=== PATIENT | male | born 1965 | race Caucasian/White ===

== ENCOUNTER 2021-11-15 08:02 | Emergency (ER) | payer OTHER ==
[~2021-11-15 08:02] MED LIST: CIPRO500 MG PO; METRONIDAZOLE500 MG PO
[2021-11-15 09:22] LABS: BASOPHIL 0.6 % (0-2); EOSINOPHIL 2.8 % (0-5); HGB 13.9 g/dl (13.2-18.0); LYMPHOCYTE 18.4 % (15-48); MCH 35.4 pg (25.0-31.0); MCHC 34.8 g/dL (32.0-36.0); MCV 101.8 fL (78.0-100.0); MONOCYTE 10.8 % (0-12); MPV 9.5 fL (6.0-9.5); NEUTROPHIL 66.6 % (41-80); NRBC 0; PLT 104 K/uL (150-400); RBC 3.93 M/uL (4.70-6.00); RDW 13.4 % (11.5-14.0)
[2021-11-15 09:35] LABS: ALBUMIN 3.3 g/dL (3.4-5.0); BILIRUBIN - TOTAL 0.5 mg/dL (0.2-1.0); BUN/CREAT RATIO (CALC) 18.3 RATIO; CREATININE 0.93 mg/dL (0.67-1.17); GLOBULIN (CALCULATION) 3.8 g/dL; POTASSIUM 4.3 mmol/L (3.5-5.1); TOTAL PROTEIN 7.1 g/dL (6.4-8.2)
[2021-11-15 09:54] LABS: BILIRUBIN NEGATIVE (NEGATIVE); BLOOD NEGATIVE Ery/uL (NEGATIVE); CLARITY CLEAR (CLEAR); COLOR YELLOW (YELLOW); GLUCOSE (U) NORMAL (NORMAL); LEUKOCYTES NEGATIVE Leu/uL (NEGATIVE); NITRITE NEGATIVE (NEGATIVE); PROTEIN NEGATIVE (NEGATIVE); UROBILINOGEN 0.2 mg/dL (0.2-1.0); pH 5.5 (5.0-9.0)
[2021-11-15] MEDS ORDERED: PREDNISONE 20MG20 MG PO (12:42)
[2021-11-15] MEDS ORDERED: NORCO 5-325 TA1 EACH PO (12:42)
== END 2021-11-15 13:19 | disposition home or self-care (01) ==
LOC: FER 08:02
PROVIDERS: Emergency Medicine
DX: M51.36 Other intervertebral disc degeneration, lumbar region (principal); R16.2 Hepatomegaly with splenomegaly, not elsewhere classified; I10 Essential (primary) hypertension
CPT/HCPCS: 36415; 80053; 81003; 85025; J1170; J1885; J2405; J2930; Q9967

== ENCOUNTER 2022-03-28 06:47 | Inpatient (IN) | payer OTHER ==
[~2022-03-28] VITALS: Ht 175.3 cm; Wt 155.0 kg
[~2022-03-28 06:47] MED LIST changes: +NORCO 5-325 TA1 EACH PO; +PREDNISONE 20MG20 MG PO
[2022-03-28 07:38] LABS: BASOPHIL 0.8 % (0-2); EOSINOPHIL 2.7 % (0-5); HCT 43.6 % (42.0-52.0); MCHC 34.4 g/dL (32.0-36.0); MCV 101.9 fL (78.0-100.0); MONOCYTE 14.1 % (0-12); MPV 9.4 fL (6.0-9.5); NEUTROPHIL 61.6 % (41-80); NRBC 0; PLT 101 K/uL (150-400); RBC 4.28 M/uL (4.70-6.00); WBC 5.2 K/uL (4.0-10.5)
[2022-03-28 07:45] LABS: INR 1.02 (0.9-1.2); PROTHROMBIN TIME 13.1 SECONDS (11.9-13.9)
[2022-03-28 07:47] LABS: D-DIMER 0.8 ug/mLFEU (0.00-0.41)
[2022-03-28 07:54] LABS: ALBUMIN 3.3 g/dL (3.4-5.0); BILIRUBIN - TOTAL 0.4 mg/dL (0.2-1.0); CREATININE 1.05 mg/dL (0.67-1.17); GLOBULIN (CALCULATION) 3.5 g/dL; MAGNESIUM 1.3 mg/dL (1.8-2.4); POTASSIUM 3.8 mmol/L (3.5-5.1); TOTAL PROTEIN 6.8 g/dL (6.4-8.2)
[2022-03-28 08:01] LABS: LACTIC ACID 2.6 mmol/L (0.4-1.9)
[2022-03-28 08:43] LABS: BILIRUBIN NEGATIVE (NEGATIVE); BLOOD NEGATIVE Ery/uL (NEGATIVE); COLOR YELLOW (YELLOW); GLUCOSE (U) NORMAL (NORMAL); LEUKOCYTES NEGATIVE Leu/uL (NEGATIVE); NITRITE NEGATIVE (NEGATIVE); PROTEIN TRACE (LOW) mg/dL (NEGATIVE); SPECIFIC GRAVITY >=1.030 (1.001-1.030); UROBILINOGEN 0.2 mg/dL (0.2-1.0)
[2022-03-28 08:45] LABS: CLARITY HAZY (CLEAR)
[2022-03-28 08:52] LABS: BACTERIA 1+
[2022-03-28] MEDS ORDERED: PRINIVIL10 MG PO (11:18)
[2022-03-28] MEDS ORDERED: TENORMIN50 MG PO (11:18)
[2022-03-28] MEDS ORDERED: NEURONTIN300 MG PO (11:19)
[2022-03-28] MEDS ORDERED: AMBIEN10 MG PO (11:19)
[2022-03-28] MEDS ORDERED: PERCOCET 10-321 EACH PO (11:20)
[2022-03-28] MEDS ORDERED: SYNTHROID100 MCG PO (11:21)
[2022-03-28] MEDS ORDERED: PROTONIX 40MG T40 MG PO (11:21)
[2022-03-28] MEDS ORDERED: FLONASE ALLER15.8 ML (11:22)
[2022-03-28] MEDS ORDERED: ALLOPURINOL 30300 MG PO (21:06)
[2022-03-29 06:11] LABS: BASOPHIL 0.2 % (0-2); EOSINOPHIL 0 % (0-5); HCT 44.7 % (42.0-52.0); HGB 15.5 g/dl (13.2-18.0); LYMPHOCYTE 8.4 % (15-48); MCH 35.5 pg (25.0-31.0); MCHC 34.7 g/dL (32.0-36.0); MCV 102.3 fL (78.0-100.0); MONOCYTE 2.8 % (0-12); MPV 9.8 fL (6.0-9.5); NEUTROPHIL 87.6 % (41-80); NRBC 0; RBC 4.37 M/uL (4.70-6.00); RDW 13.8 % (11.5-14.0)
[2022-03-29 06:14] LABS: PLT 98 K/uL (150-400)
[2022-03-29 06:49] LABS: BUN/CREAT RATIO (CALC) 27.7 RATIO; CREATININE 0.83 mg/dL (0.67-1.17); MAGNESIUM 2.1 mg/dL (1.8-2.4); POTASSIUM 4.7 mmol/L (3.5-5.1)
--- NOTE | 2022-03-29 14:40 | NUR ---
03/29 Mr. Maynard lives alone. He is independent and employed. Will monitor for 02 needs. Patient chose [facility] as the provider if 02 is needed.
[2022-03-30 06:41] LABS: BASOPHIL 0.1 % (0-2); EOSINOPHIL 0 % (0-5); HCT 44.6 % (42.0-52.0); HGB 14.8 g/dl (13.2-18.0); LYMPHOCYTE 5.4 % (15-48); MCH 34.6 pg (25.0-31.0); MCHC 33.2 g/dL (32.0-36.0); MCV 104.2 fL (78.0-100.0); MONOCYTE 5.3 % (0-12); MPV 9.7 fL (6.0-9.5); NEUTROPHIL 88.7 % (41-80); NRBC 0; PLT 113 K/uL (150-400); RBC 4.28 M/uL (4.70-6.00)
[2022-03-30 06:47] LABS: WBC 11.5 K/uL (4.0-10.5)
[2022-03-30 07:57] LABS: BUN/CREAT RATIO (CALC) 31.8 RATIO; C-REACTIVE PROTEIN 0.5 mg/dL (<=0.90); CREATININE 0.88 mg/dL (0.67-1.17); MAGNESIUM 1.8 mg/dL (1.8-2.4); POTASSIUM 4.6 mmol/L (3.5-5.1)
--- NOTE | 2022-03-30 23:03 | NUR ---
PT REQUEST TO TAKE HS MEDS AT LATER TIME
--- NOTE | 2022-03-31 12:58 | NUR ---
03/31/22 [facility] provided 02 at 2 L. A referral was made to the Resource Trap Setter to schedule a Pulmonology appointment.
[2022-03-31] MEDS ORDERED: SINGULAIR10 MG PO (15:24)
[2022-03-31] MEDS ORDERED: AMOX TR-K CLV1 EAC4 PO (15:24)
--- NOTE | 2022-03-31 16:20 | NUR ---
WENT OVER DISCHARGE INSTRUCTIONS WITH PATIENT. VERBALIZED UNDERSTANDING. IV AND MONITOR REMOVED. HOME OXYGEN PORTABLE TANK AT BEDSIDE TO BE WORN HOME. HOME 02 ARRANGED WITH G[facility]ISSAS. PATIENT DISCHARGED VIA TAXI RIDE.
--- NOTE | 2022-03-31 17:17 | NUR ---
03/31/22 The Resource Plant Protection Supervisor spoke to Chivo Caesar re: ssheduling an appointment with a Strategic Client Executive. Mr. Maynard requested for an appointment to be set up by his PCP.
== END 2022-03-31 16:38 | disposition home or self-care (01) | DRG 871 ==
LOC: FER 06:47 → FTCU 09:53
PROVIDERS: Emergency Medicine; Internal Medicine; ADMIT Internal Medicine
PROC: 5A09357 Assistance with Respiratory Ventilation, Less than 24 Consecutive Hours, Continuous Positive Airway Pressure (ICD-10-PCS; principal; 2022-03-28)
PROC: 3E03329 Introduction of Other Anti-infective into Peripheral Vein, Percutaneous Approach (ICD-10-PCS; 2022-03-28)
PROC: B24BZZZ Ultrasonography of Heart with Aorta (ICD-10-PCS; 2022-03-29)
PROC: 5A09357 Assistance with Respiratory Ventilation, Less than 24 Consecutive Hours, Continuous Positive Airway Pressure (ICD-10-PCS; 2022-03-30)
DX: A41.9 Sepsis, unspecified organism (principal); J18.9 Pneumonia, unspecified organism; J96.01 Acute respiratory failure with hypoxia; J96.02 Acute respiratory failure with hypercapnia; J44.1 Chronic obstructive pulmonary disease with (acute) exacerbation; E87.2 Acidosis; Z68.43 Body mass index [BMI] 50.0-59.9, adult; J44.0 Chronic obstructive pulmonary disease with (acute) lower respiratory infection; E66.2 Morbid (severe) obesity with alveolar hypoventilation; E87.1 Hypo-osmolality and hyponatremia; R65.20 Severe sepsis without septic shock; Z20.822 Contact with and (suspected) exposure to COVID-19; J20.9 Acute bronchitis, unspecified; I89.0 Lymphedema, not elsewhere classified; E83.42 Hypomagnesemia; R82.81 Pyuria; H05.20 Unspecified exophthalmos; I11.9 Hypertensive heart disease without heart failure; E03.9 Hypothyroidism, unspecified; D69.6 Thrombocytopenia, unspecified; H53.2 Diplopia; Z82.49 Family history of ischemic heart disease and other diseases of the circulatory system; Z87.891 Personal history of nicotine dependence; Z88.0 Allergy status to penicillin; Z79.899 Other long term (current) drug therapy; Z99.81 Dependence on supplemental oxygen
CPT/HCPCS: 36415; 36600; 70450; 71045; 71275; 80048; 80053; 81001; 82803; 83036; 83605; 83735; 83880; 84145; 84439; 84443; 84484; 85025; 85379; 85610; 85730; 86140; 87040; 87088; 93005; 94010; 94640; 94660; 94668; J0456; J0696; J1650; J1940; J2543; J2920; J2930; J3475; J7050; Q9967; U0002

== ENCOUNTER 2022-04-17 20:31 | Emergency (ER) | payer OTHER ==
[~2022-04-17 20:31] MED LIST changes: +ALLOPURINOL 30300 MG PO; +AMBIEN10 MG PO; +AMOX TR-K CLV1 EAC4 PO; +FLONASE ALLER15.8 ML; +NEURONTIN300 MG PO; +PERCOCET 10-321 EACH PO; +PRINIVIL10 MG PO; +PROTONIX 40MG T40 MG PO; +SINGULAIR10 MG PO; +SYNTHROID100 MCG PO; +TENORMIN50 MG PO
[2022-04-17 21:23] LABS: BASOPHIL 0.3 % (0-2); EOSINOPHIL 0.5 % (0-5); HCT 40.3 % (42.0-52.0); HGB 13.5 g/dl (13.2-18.0); LYMPHOCYTE 9.3 % (15-48); MCHC 33.5 g/dL (32.0-36.0); MCV 104.4 fL (78.0-100.0); MONOCYTE 8.1 % (0-12); MPV 10.1 fL (6.0-9.5); NRBC 0; PLT 105 K/uL (150-400); RBC 3.86 M/uL (4.70-6.00); RDW 14.6 % (11.5-14.0); WBC 10.5 K/uL (4.0-10.5)
[2022-04-17 21:33] LABS: INR 1.07 (0.9-1.2); PROTHROMBIN TIME 13.6 SECONDS (11.9-13.9); PTT 31.4 SECONDS (24.9-34.6)
[2022-04-17 21:46] LABS: ALBUMIN 3.1 g/dL (3.4-5.0); BILIRUBIN - TOTAL 0.6 mg/dL (0.2-1.0); BUN/CREAT RATIO (CALC) 6.4 RATIO; CREATININE 6.23 mg/dL (0.67-1.17); GLOBULIN (CALCULATION) 3.6 g/dL; TOTAL PROTEIN 6.7 g/dL (6.4-8.2)
[2022-04-17 21:58] LABS: CORONAVIRUS 2019 SARS-COV-2 NEGATIVE (NEGATIVE); INFLUENZA A NAA NEGATIVE (NEGATIVE)
[2022-04-17 22:00] LABS: BILIRUBIN 1+ mg/dL (NEGATIVE); BLOOD NEGATIVE Ery/uL (NEGATIVE); CLARITY CLEAR (CLEAR); COLOR YELLOW (YELLOW); GLUCOSE (U) NORMAL (NORMAL); LEUKOCYTES NEGATIVE Leu/uL (NEGATIVE); NITRITE NEGATIVE (NEGATIVE); PROTEIN 1+ mg/dL (NEGATIVE); SPECIFIC GRAVITY >=1.030 (1.001-1.030)
[2022-04-17 22:08] LABS: ECSTASY (MDMA) NEGATIVE (NEGATIVE); MARIJUANA (THC) NEGATIVE (NEGATIVE)
[2022-04-17 22:09] LABS: AMPHETAMINES NEGATIVE (NEGATIVE); BARBITURATES NEGATIVE (NEGATIVE); METHADONE NEGATIVE (NEGATIVE); OPIATES POSITIVE (NEGATIVE); OXYCODONE NEGATIVE (NEGATIVE)
[2022-04-17 22:17] LABS: BACTERIA 1+; SQUAMOUS EPITHELIAL CELLS RARE
[2022-04-17 22:18] LABS: AMORPHOUS URATES CRYSTALS TRACE
[2022-04-17] MEDS ORDERED: LEVAQUIN750 MG PO (22:24)
[2022-04-17 23:17] LABS: BUN/CREAT RATIO (CALC) 6.7 RATIO; CREATININE 6.01 mg/dL (0.67-1.17)
[2022-04-17 23:29] LABS: POTASSIUM 6.4 mmol/L (3.5-5.1)
[2022-04-18 01:02] LABS: BUN/CREAT RATIO (CALC) 7.3 RATIO; CREATININE 5.89 mg/dL (0.67-1.17); POTASSIUM 5.8 mmol/L (3.5-5.1)
== END 2022-04-17 23:59 | disposition critical access hospital (66) ==
LOC: FER 20:31
PROVIDERS: Emergency Medicine; Nurse Practitioner Family
DX: A41.9 Sepsis, unspecified organism (principal); J44.0 Chronic obstructive pulmonary disease with (acute) lower respiratory infection; J18.9 Pneumonia, unspecified organism; R65.20 Severe sepsis without septic shock; J96.00 Acute respiratory failure, unspecified whether with hypoxia or hypercapnia; N39.0 Urinary tract infection, site not specified; I50.9 Heart failure, unspecified; N17.9 Acute kidney failure, unspecified; Z20.822 Contact with and (suspected) exposure to COVID-19
CPT/HCPCS: 36415; 36600; 70450; 71045; 80048; 80053; 80305; 81001; 82803; 83605; 83880; 84145; 84484; 85025; 85379; 85610; 85730; 86140; 93005; J0610; J2543; J7030; U0002